=== PATIENT | male | born 1945 | race Two or more races ===

== ENCOUNTER 2018-01-06 15:18 | Emergency (ER) | payer MEDICARE ==
[~2018-01-06] VITALS: Ht 175.3 cm; Wt 50.0 kg
[2018-01-06 15:20] VITALS: BP 109/56; PULSE 85; RESP 20; TEMP 98.7; O2SAT 92
[2018-01-06] MEDS ORDERED: SINE25TA PO (15:50)
[2018-01-06] MEDS ORDERED: BACL10TA PO (15:50)
[2018-01-06] MEDS ORDERED: CLON0.5T PO (15:50)
[2018-01-06] MEDS ORDERED: SINE50TA PO (15:50)
[2018-01-06] MEDS ORDERED: DIAZ2TAB PO (15:50)
[2018-01-06] MEDS ORDERED: MIRA0.12 PO (15:50)
[2018-01-06] MEDS ORDERED: TRAM50TA PO (15:50)
--- NOTE | 2018-01-06 16:06 | PD ---
HPI Chief Complaint: GI Complaint Time Seen by Provider: 15:30 Travel History International Travel<30 days: No Contact w/Intl Traveler<30days: No Traveled to known affect area: No History of Present Illness HPI Patient has a history of Parkinson's for which she is under the care of Dr. Zuniga the neurologist and is on multiple medications including Sinemet every 2 hours, Valium, baclofen and other muscle relaxers prescription strength. The son is bringing them father over a stating that over the last 10 days he has been having trouble swallowing. The source is difficult to elucidate by history taking, because during this past 10 days the patient has described both the stuck sensation as well as going down the wrong pipe as father and son stated. So it is difficult to evaluate at least clinically whether this is a mechanical or a neurological issue. They have follow-up with speech therapy for swallow evaluation however it is not until several days from now and the son feels that his father needs closer evaluation in sooner. However the father does not want to be admitted and seems really hesitant to even have an IV done. So it is difficult to understand at this point what their ultimate goal is. Upon further questioning, it is noted that Dr. Zuniga actually set up the appointment with speech therapist for swallow evaluation 2 days from now. The patient hesitantly agreed for us to obtain IV blood work to evaluate his electrolytes, kidney, liver function. PFSH Past Medical History Parkinson's Disease: Yes Influenza Vaccination: Yes Past Surgical History Surgical History: No Previous Surgery Social History Alcohol Use: Yes (OCCAS) Tobacco Use: No Substance Use: No Allergies-Medications (Allergen,Severity, Reaction): Coded Allergies: No Known Allergies (Verified Adverse Reaction, Unknown, 01/06/18) Reported Meds & Prescriptions Reported Meds & Active Scripts Active Reported Mirapex (Pramipexole Dihydrochloride) 0.125 Mg Tab 0.125 Mg PO BID Tramadol (Tramadol HCl) 50 Mg Tab 50 Mg PO Q8H PRN Clonazepam 0.5 Mg Tab 0.5 Mg PO HS Diazepam 2 Mg Tab 1 Mg PO HS PRN Baclofen 10 Mg Tab 10 Mg PO BID Sinemet Cr (Carbidopa-Levodopa ER) 50-200 Mg Tab 2 Tab PO Q2HR Sinemet (Carbidopa-Levodopa) 25-100 Mg Tab 2 Tab PO Q2HR Physical Exam Narrative GENERAL: verbally communicative and sharp, with resting tremor SKIN: Warm and dry. HEAD: Atraumatic. Normocephalic. EYES: Pupils equal and round. No scleral icterus. No injection or drainage. ENT: No nasal bleeding or discharge. Mucous membranes pink and moist. NECK: Trachea midline. No JVD. CARDIOVASCULAR: Regular rate and rhythm. RESPIRATORY: No accessory muscle use. Clear to auscultation. Breath sounds equal bilaterally. GASTROINTESTINAL: Abdomen soft, non-tender, nondistended. Hepatic and splenic margins not palpable. MUSCULOSKELETAL: Extremities without clubbing, cyanosis, or edema. No obvious deformities. NEUROLOGICAL: Awake and alert. No obvious cranial nerve deficits. Motor grossly within normal limits. however very strong resting tremor causing his neck, trunk, and arms to nearly flail out while at rest. Normal speech. PSYCHIATRIC: Appropriate mood and affect; insight and judgment normal. Data Data Last Documented VS Vital Signs Date Time Temp Pulse Resp B/P (MAP) Pulse Ox O2 Delivery O2 Flow Rate FiO2 01/06/18 15:20 98.7 85 20 109/56 (73) 92 Orders Orders Complete Blood Count With Diff (01/06/18 15:49) Comprehensive Metabolic Panel (01/06/18 15:49) Troponin I (01/06/18 15:49) B-Type Natriuretic Peptide (01/06/18 15:49) Prothrombin Time / Inr (Pt) (01/06/18 15:49) Act Partial Throm Time (Ptt) (01/06/18 15:49) Lipase (01/06/18 15:49) Ed Discharge Order (01/06/18 17:33) Labs Laboratory Tests Test 01/06/18 15:58 White Blood Count 10.7 TH/MM3 Red Blood Count 3.45 MIL/MM3 Hemoglobin 10.2 GM/DL Hematocrit 31.7 % Mean Corpuscular Volume 91.7 FL Mean Corpuscular Hemoglobin 29.5 PG Mean Corpuscular Hemoglobin Concent 32.1 % Red Cell Distribution Width 14.0 % Platelet Count 326 TH/MM3 Mean Platelet Volume 7.4 FL Neutrophils (%) (Auto) 83.5 % Lymphocytes (%) (Auto) 12.5 % Monocytes (%) (Auto) 3.0 % Eosinophils (%) (Auto) 0.8 % Basophils (%) (Auto) 0.2 % Neutrophils # (Auto) 9.0 TH/MM3 Lymphocytes # (Auto) 1.3 TH/MM3 Monocytes # (Auto) 0.3 TH/MM3 Eosinophils # (Auto) 0.1 TH/MM3 Basophils # (Auto) 0.0 TH/MM3 CBC Comment DIFF FINAL Differential Comment Prothrombin Time 11.0 SEC Prothromb Time International Ratio 1.1 RATIO Activated Partial Thromboplast Time 29.9 SEC Blood Urea Nitrogen 20 MG/DL Creatinine 0.75 MG/DL Random Glucose 91 MG/DL Total Protein 6.9 GM/DL Albumin 3.5 GM/DL Calcium Level 8.9 MG/DL Alkaline Phosphatase 93 U/L Aspartate Amino Transf (AST/SGOT) 14 U/L Alanine Aminotransferase (ALT/SGPT) LESS THAN 6 U/L Total Bilirubin 1.4 MG/DL Sodium Level 133 MEQ/L Potassium Level 4.0 MEQ/L Chloride Level 100 MEQ/L Carbon Dioxide Level 25.4 MEQ/L Anion Gap 8 MEQ/L Estimat Glomerular Filtration Rate 102 ML/MIN Troponin I LESS THAN 0.02 NG/ML B-Type Natriuretic Peptide 54 PG/ML Lipase 86 U/L MDM Medical Decision Making Medical Screen Exam Complete: Yes Emergency Medical Condition: Yes Medical Record Reviewed: Yes Differential Diagnosis Dehydration versus electrolyte abnormalities versus mechanical dysphagia versus neurogenic dysphagia Narrative Course Upon further questioning, it is noted that Dr. Zuniga actually set up the appointment with speech therapist for swallow evaluation 2 days from now. The patient hesitantly agreed for us to obtain IV blood work to evaluate his electrolytes, kidney, liver function. Complete metabolic profile shows normal electrolytes, normal kidney function, normal liver function, normal lipase, negative troponin and negative beta natruretic peptide. Coagulation profile is within normal limits CBC shows no leukocytosis mild anemia of 09/10 normal platelet count and no major left shift. After discussing laboratory data with the family the patient understood that his dysphagia present time does not appear to be too severe and he would be okay to follow-up as an outpatient with speech therapy for the proper swallow evaluation. Diagnosis Primary Impression: Dysphagia Patient Instructions: Dysphagia (ED), General Instructions Additional Instructions: Keep your appointment with speech therapy for your proper swallow evaluation Disposition: 01 DISCHARGE HOME Condition: Stable Enoch Pérez MD Jan 06, 2018 16:06
[2018-01-06 16:08] LABS: BASOPHIL % 0.2 % (0.0-2.0); EOSINOPHIL # 0.1 TH/MM3 (0-0.4); EOSINOPHIL % 0.8 % (0.0-4.0); HEMATOCRIT 31.7 % (39.0-51.0); HEMOGLOBIN 10.2 GM/DL (13.0-17.0); LYMPH % 12.5 % (9.0-44.0); LYMPHOCYTE # 1.3 TH/MM3 (1.0-4.8); MEAN CELL VOLUME 91.7 FL (80.0-100.0); MEAN CORPUSCULAR HEMOGLOBIN 29.5 PG (27.0-34.0); MEAN CORPUSCULAR HGB CONC 32.1 % (32.0-36.0); MEAN PLATELET VOLUME 7.4 FL (7.0-11.0); MONOCYTE # 0.3 TH/MM3 (0-0.9); NEUT % 83.5 % (16.0-70.0); PLATELET COUNT 326 TH/MM3 (150-450); RED BLOOD COUNT 3.45 MIL/MM3 (4.50-5.90); WHITE BLOOD COUNT 10.7 TH/MM3 (4.0-11.0)
[2018-01-06 16:17] LABS: CHLORIDE 100 MEQ/L (98-107); SODIUM (NA) 133 MEQ/L (136-145)
[2018-01-06 16:20] LABS: CALCIUM 8.9 MG/DL (8.5-10.1)
[2018-01-06 16:21] LABS: ALBUMIN 3.5 GM/DL (3.4-5.0); BICARBONATE 25.4 MEQ/L (21.0-32.0); BLOOD UREA NITROGEN 20 MG/DL (7-18); GLUCOSE,RANDOM 91 MG/DL (74-106)
[2018-01-06 16:23] LABS: INTERNATIONAL NORMALIZED RATIO 1.1 RATIO
[2018-01-06 16:24] LABS: ALT (GPT) LESS THAN 6 U/L (12-78); AST (GOT) 14 U/L (15-37); CREATININE 0.75 MG/DL (0.60-1.30); GLOMERULAR FILTRATION RATE 102 ML/MIN (>89)
[2018-01-06 16:25] LABS: TOTAL BILIRUBIN ADULT 1.4 MG/DL (0.2-1.0); TOTAL PROTEIN 6.9 GM/DL (6.4-8.2)
[2018-01-06 16:26] LABS: ALKALINE PHOSPHATASE 93 U/L (45-117)
[2018-01-06 16:29] LABS: TROPONIN I LESS THAN 0.02 NG/ML (0.02-0.05)
== END 2018-01-06 17:36 | disposition home or self-care (01) ==
LOC: PHED 15:18
DX: R13.10 Dysphagia, unspecified (principal); G20 Parkinson's disease; Z79.899 Other long term (current) drug therapy
CPT/HCPCS: 80053; 83690; 83880; 84484; 85025; 85610; 85730; 99283

== ENCOUNTER → 2018-01-10 | Outpatient (CLI) | payer MEDICARE ==
[~2018-01-10] MED LIST: BACL10TA PO; CLON0.5T PO; DIAZ2TAB PO; MIRA0.12 PO; SINE25TA PO; SINE50TA PO; TRAM50TA PO
--- NOTE | 2018-01-10 10:49 | RADRPT ---
EXAM DATE/TIME: 01/10/2018 00:00 [facility] COMPARISON: No previous studies available for comparison. INDICATIONS : Dysphagia. Patient is unable to swallow anything, even saliva. Patient has had weight loss, 60 lbs. FLUORO TIME: 1.6 minutes IMAGE COUNT: 0 CONTRAST: Dose as prescribed by speech pathologist. MEDICAL HISTORY : Parkinson's disease. SURGICAL HISTORY : None. ENCOUNTER: Initial ACUITY: 2 weeks PAIN SCORE: 0/10 LOCATION: Esophagus. FINDINGS: A modified barium swallow was performed with speech pathology. Patient was given a variety of liquids to swallow. Aspiration was noted with nectar thick and honey thick consistencies. For a full detailed report, see report by the speech pathologist. CONCLUSION: Aspiration was noted as above. Sean Luna MD on January 10, 2018 at 10:48 Board Certified Radiologist. This report was verified electronically.
== END ==
LOC: HRAD 10:08
PROVIDERS: ATTEND Specialist
DX: G20 Parkinson's disease (principal)
CPT/HCPCS: 74230; 92611; G8996; G8997; G8998